=== PATIENT | female | born 1965 | race Caucasian/White ===

== ENCOUNTER 2019-11-27 00:28 | Observation (INO) | payer OTHER ==
[~2019-11-27] VITALS: Ht 157.5 cm; Wt 55.8 kg
[2019-11-27 01:16] LABS: BASOPHILS # (AUTO) 0.1 (0.0-0.1); BASOPHILS % 0.8 % (0.0-1.0); EOSINOPHILS # (AUTO) 0.3 (0.0-0.4); HEMATOCRIT 41.7 % (34.2-44.1); HEMOGLOBIN 14.6 g/dL (12.0-16.0); LYMPHOCYTES # (AUTO) 3.5 (1.0-3.2); LYMPHOCYTES % 47.1 % (18.0-39.1); MEAN CORPUSCULAR HEMOGLOBIN 31.8 pg (28-32); MEAN CORPUSCULAR VOLUME 90.8 fL (81-99); MONOCYTES # (AUTO) 0.4 (0.2-0.8); MONOCYTES % 5.1 % (4.4-11.3); NEUTROPHILS # (AUTO) 3.2 (2.1-6.9); NEUTROPHILS % 42.6 % (38.7-80.0); PLATELET COUNT 352 x10e3/uL (140-360); RED BLOOD COUNT 4.59 x10e6/uL (3.6-5.1); RED CELL DISTRIBUTION WIDTH 13.5 % (11.7-14.4)
[2019-11-27 01:36] LABS: ALANINE AMINOTRANSFERASE 12 IU/L (0-55); ALBUMIN 3.9 g/dL (3.5-5.0); ALBUMIN/GLOBULIN RATIO 1.1 (0.8-2.0); ALKALINE PHOSPHATASE 91 IU/L (40-150); ANION GAP 13.7 mmol/L (8-16); CARBON DIOXIDE 22 mmol/L (22-29); CHLORIDE 108 mmol/L (98-107); CREATINE KINASE 57 IU/L (29-168); GLUCOSE 95 mg/dL (74-118); POTASSIUM 3.7 mmol/L (3.5-5.1); SODIUM 140 mmol/L (136-145)
[2019-11-27 01:37] LABS: INFLUENZAE A&B ANTIGEN (RAPID) NEGATIVE (NEGATIVE); STREPTOCOCCUS GRP A ANTIGEN NEGATIVE (NEGATIVE)
[2019-11-27 01:41] LABS: B-TYPE NATRIURETIC PEPTIDE2 32.5 pg/mL (0-100)
[2019-11-27 02:29] LABS: BLOOD UREA NITROGEN 7 mg/dL (7-26); BUN/CREATININE RATIO 10 (6-25); CREATININE, SERUM 0.69 mg/dL (0.57-1.11); EST GLOMERULAR FILTRATION RATE > 60 ML/MIN (60-)
--- NOTE | 2019-11-27 04:11 | Diagnostic Imaging Report ---
EXAM: CT Chest WITH contrast- Pulmonary Embolism Protocol INDICATION: Cough, shortness of breath. COMPARISON: None TECHNIQUE: Chest was scanned utilizing a multidetector helical scanner from the lung apex through the level of the diaphragm after administration of IV contrast. Thin section reconstructions were obtained with special concentration on the pulmonary arteries. Coronal and sagittal reformations were obtained. Pulmonary embolism protocol was performed. IV CONTRAST: 100 cc of Isovue 370 RADIATION DOSE: Total DLP: 300.6 mGy*cm Dose modulation, iterative reconstruction, and/or weight based adjustment of the mA/kV was utilized to reduce the radiation dose to as low as reasonably achievable. COMPLICATIONS: None FINDINGS: LINES/ TUBES: None. PULMONARY ARTERIES: No filling defect is identified within the pulmonary arteries to the segmental level. Main pulmonary artery measures 2.2 cm in diameter. LUNGS AND AIRWAYS: Diffuse mild bronchial wall thickening with scattered distal bronchial mucoid impaction. No evidence of pneumonia. Scattered linear subsegmental atelectasis. Calcified granuloma in the right lower lobe. PLEURA: The pleural spaces are clear. HEART AND MEDIASTINUM: There are tiny subcentimeter hypodensities in the thyroid. No mediastinal, hilar or axillary lymphadenopathy. The heart is normal in size.. There is no pericardial effusion. There are mild atherosclerotic calcifications in the aorta. UPPER ABDOMEN: Limited contrast-enhanced views of the upper abdomen. There are multiple hepatic cysts, largest measuring up to 7.6 cm in the left hepatic lobe. Additional subcentimeter hypodensities are too small to characterize, but likely represent cysts. BONES: The visualized bony thorax is within normal limits. SOFT TISSUES: Unremarkable. IMPRESSION: No evidence of pulmonary embolism or pneumonia. Diffuse bronchial wall thickening, compatible with bronchitis in the setting of cough. Multiple hepatic cysts and additional subcentimeter hypodensities, likely cysts. Suggest follow-up nonemergent liver protocol CT or MRI for further evaluation. Signed by: Dr. Lennie Araujo MD on 11/27/2019 4:08 AM
--- OUTSIDE RECORDS SUMMARY | 2019-11-27 04:23 | XMS REPORT ---
Author Author [facility] Address Unknown Phone Unavailable Care Team Providers Care Bee Producer Name Role Phone TEJAL KERRY Unavailable Unavailable Problems This patient has no known problems. Allergies, Adverse Reactions, Alerts This patient has no known allergies or adverse reactions. Medications This patient has no known medications. Results Test Description Test Time Test Comments Text Results Atomic Results Result Comments CT CHEST W 2019-11-27 03:58:00 [facility] [address] [address] Patient Name: TINY SHARPE MR #: [id number] : 1965 Age/Sex: 54/F Req #: [id number] Adm Physician: Ordered by: KERRY TOURE DO Report #: [id number] Location: ER Room/Bed: Procedure: [id number] CT/CT CHEST W Exam Date: Exam Time: REPORT STATUS: Signed EXAM: CT Chest WITH contrast- Pulmonary Embolism Protocol INDICATION: Cou gh, shortness of breath. COMPARISON: None TECHNIQUE: Chest was scanned utilizing a multidetector helical scanner from the lung apex through the level of the diaphragm after administration of IV contrast. Thin section reconstructions were obtained with special concentration on the pulmonary arteries. Coronal and sagittal reformations were obtained. Pulmonary embolism protocol was performed. IV CONTRAST: 100 cc of Isovue 370 RADIATION DOSE: Total DLP: 300.6 mGy*cm Dose modulation, iterative reconstruction, and/or weight based adjustment of the mA/kV was utilized to reduce the radiation dose to as low as reasonably achievable. COMPLICATIONS: None FINDINGS: LINES/ TUBES: None. PULMONARY ARTERIES: No filling defect is identified within the pulmonary arteries to the segmental level. Main pulmonary artery measures 2.2 cm in diameter. LUNGS AND AIRWAYS: Diffuse mild bronchial wall thickening with s cattered distal bronchial mucoid impaction. No evidence of pneumonia. Scattered linear subsegmental atelectasis. Calcified granuloma in the right lower lobe. PLEURA: The pleural spaces are clear. HEART AND MEDIASTINUM: There are tiny subcentimeter hypodensities in the thyroid. No mediastinal, hilar or axillary lymphadenopathy. The heart is normal in size.. There is no pericardial effusion. There are mild atherosclerotic calcifications in the aorta. UPPER ABDOMEN: Limited contrast-enhanced views of the upper abdomen. There are multiple hepatic cysts, largest measuring up to 7.6 cm in the left hepatic lobe. Additional subcentimeter hypodensities are too small to characterize, but likely represent cysts. BONES: The visualized bony thorax is within normal limits. SOFT TISSUES: Unremarkable. IMPRESSION: No evidence of pulmonary embolism or pneumonia. Diffuse bronchial wall thickening, compatible with bronchitis in the setting of cough. Multiple hepatic cysts and additional subcentimeter hypodensities, likely cysts. Suggest follow-up nonemergent liver protocol CT or MRI for further evaluation. Signed by: Dr. Lorraine Marquez MD on 11/27/2019 4:08 AM Dictated By: LORRAINE MARQUEZ MD 7 Transcribed By: FATOU on 11/27/19407 COPY TO: KERRY TOURE DO [facility] MAMM BILATERAL SUSIE CAD DIGITAL 2018-11-14 09:36:15 - [facility] MAMM BILATERAL SUSIE CAD DIGITALBILATERAL FIRST EVER DIGITAL SCREENING MAMMOGRAM 3D/2D WITH CAD: 11/13/2018CLINICAL: Asymptomatic. Digital breast tomosynthesis was performed in addition to routine CC and MLO views. Current mammographic images were evaluated by either a [employer] M-Vu or a [employer] Image[employer]er CAD (computer aided detection system). No prior exams were available for comparison. There are scattered fibroglandular tissues in both breasts. There are benign calcifications in both breasts. No suspicious mass, architectural distortion, malignant type calcification, or lymph node abnormality detected. IMPRESSION: BENIGNThere is no mammographic evidence of malignancy. Resume annual screening mammography in one year. Horacio Archer/pendana:11/14/2018 09:36:15 Charge Aide: Aubrie ANDRADE, [facility]- FWletter sent: BIRADS 1-2 Normal Mammogram BI-RADS: 2 Benign
[2019-11-27] MEDS ORDERED: ALBUTEROL/IPRATROPIUM 3 ML NEB NEB PRN (04:30)
[2019-11-27] MEDS ORDERED: ASPIRIN 81 MG CHEW TAB PO ONE (04:30)
[2019-11-27] MEDS ORDERED: IOPAMIDOL 370 MG/ML 200 ML INFUS..BTL INJ ONE (05:08)
[2019-11-27] MEDS ORDERED: SODIUM CHLORIDE 0.9% 50ML 50 ML ONE (05:08)
[2019-11-27 05:16] VITALS: BP 115/80
[2019-11-27] MEDS ORDERED: AMBIEN5 MG PO (05:16)
[2019-11-27] MEDS ORDERED: IBUPROFEN600 MG PO (05:16)
[2019-11-27] MEDS ORDERED: METHYLPREDNISOLONE SOD SUCC 40 MG/ML VIAL 1ML IV SCH ×2 (06:00→14:00)
[2019-11-27 06:15] LABS: CREATINE KINASE 53 IU/L (29-168)
--- NOTE | 2019-11-27 07:10 | NUR ---
RECEIVED REPORT FROM GENERATION TECHNOLOGIST NURSE, PATIENT AWAKE IN BED, NO DISTRESS NOTED, A&OX3, BED IS LOW AND LOCKED, SIDE RAILS UPX2, CALL LIGHT WITHIN REACH. WILL CONTINUE TO MONITOR.
[2019-11-27 07:34] VITALS: BP 118/68
[2019-11-27 09:04] VITALS: BP 118/68
--- NOTE | 2019-11-27 10:39 | NUR ---
PATIENT REQUESTING TO GO HOME, PAGED DR. LEBRON. AWAITING CALL BACK.
[2019-11-27 11:12] VITALS: BP 133/69
--- NOTE | 2019-11-27 11:40 | NUR ---
AFTER TALKING TO THE PATIENT, MAKING EVERY EFFORT TO CONVINCE PT TO STAY AND SPEAKING TO PHOTOGRAPHER'S ASSISTANT KENY AND PT'S NURSE, PT STILL INSIST ON LEAVING AMA. PT SEEMS TO BE A/O X 3 AND VITALS WNL. PT'S NURSE HAS GOTTEN AMA SIGNED.
--- NOTE | 2019-11-27 11:44 | NUR ---
PATIENT ADVICED TO STAY AND WAIT FOR DR. PORTILLO TO COME SEE HER. PATIENT REFUSES TO STAY. ALL EFFORTS TO CONVINCE PATIENT THAT STAYING IN HOSPITAL IS AT HER BEST INTEREST MADE. PATIENT CONTINUES TO REFUSE. AMA SHEET SIGNED. IV TO RT AC 20G REMOVED. 2X2 APPLIED WITH TAPE. NO BLEEDING NOTED. PATIENT CALLED FRIEND ZAHIRA AT [phone] GREENE PHONE NUMBER PROVIDED TO PATIENT. PATIENT WALKED OFF UNIT. NO DISTRESS NOTED.
--- NOTE | 2019-11-27 12:03 | NUR ---
DR. SALGUERO COVERING FOR DR. PORTILLO NOTIFIED OF PATIENT LEAVING AMA. AWARE.
== END 2019-11-27 11:43 | disposition left against medical advice (07) ==
LOC: ER 00:28 → ERHOLD 04:16 → MED/SURG3 05:03
PROVIDERS: ADMIT Internal Medicine; ATTEND Internal Medicine
DX: J44.1 Chronic obstructive pulmonary disease with (acute) exacerbation (principal); I10 Essential (primary) hypertension; M81.0 Age-related osteoporosis without current pathological fracture; R09.02 Hypoxemia
CPT/HCPCS: 36415; 71260; 80053; 82550; 82553; 83518; 83605; 83880; 84484; 85025; 87040; 87070; 87400; 93005; 99284; G0378; J2920; Q9967